=== PATIENT | female | born 1935 | race Caucasian/White ===

== ENCOUNTER 2016-10-05 22:25 | Inpatient (IN) | payer MEDICARE, OTHER ==
--- NOTE | ~2016-10-05 | CN ---
Consultation Report [facility] [address] [place]. [address] NAME: PK PICHARDO : 34 STATUS : ADM IN PAT#: [id number] AGE: 80 ADM/REG DATE : 10/06/16 MR#: [id number] REPORT SERV DATE: 10/06/16 DICTATED BY: FAB FARRIS DATE: 10/06/16 REPORT STATUS : Draft TRANSCRIBED BY: MODL DATE: 10/06/16 DATE OF CONSULTATION: 10/06/2016 HISTORY OF PRESENT ILLNESS: This patient was transferred over from [facility]. She was over there because of left lower extremity pain and discoloration. She had gangrene of her left first great toe. On 09/25/2016, she was operated by Dr. Evangelista with revascularization procedure on her left lower extremity. She does have a history of atrial fibrillation and is on Xarelto. The stools were somewhat dark, but not melenic. Her hemoglobin was 11.6 on 09/25/2016 and was admitted with a hemoglobin of 5.6. PAST MEDICAL HISTORY: Atrial fibrillation, osteoarthritis, hypertension, osteoporosis, and aortic stenosis. PAST SURGICAL HISTORY: Cholecystectomy and right AKA amputation. PHYSICAL EXAMINATION: GENERAL: Alert. VITAL SIGNS: Blood pressure 110/60 and pulse 74. NEUROLOGIC: Alert. Oriented x2. Somewhat pale. ABDOMEN: Soft, nontender. Stool was brown in color. LABORATORY WORK: As noted, her hemoglobin has gone from 5.6 to 7.7 with one unit. BUN is 13. IMPRESSION: Probable upper gastrointestinal blood loss over the last two weeks, probably related to Xarelto use. As far as I know, she was not on a proton pump inhibitor. PLAN: Will follow stabilization. Transfusion. Hold the Xarelto. Will probably need EGD here at some point. MG/MODL Fab Farris M.D. / [id number] CC: Nii Peguero M.D. Alan Shikoh, M.D.
--- NOTE | ~2016-10-05 | IDS ---
Interim Discharge Summary [facility] [address] [place]. [address] NAME: PK PICHARDO : 34 STATUS : ADM IN PAT#: [id number] AGE: 80 ADM/REG DATE : 10/06/16 MR#: [id number] REPORT SERV DATE: 10/22/16 DICTATED BY: JAGRUTI BARRIOS DATE: 10/21/16 REPORT STATUS : Draft TRANSCRIBED BY: MODL DATE: 10/21/16 ADMISSION DATE: 10/06/2016 DISCHARGE DATE: Interim summary covers period 10/15/2016 through 10/21/2016. INTERIM DIAGNOSES: 1. Peripheral arterial disease, previous right below-knee amputation, critical limb ischemia, left lower extremity status post complex revascularization, 09/25/2016. Failed revascularization with left lower extremity gangrene necessitating above knee amputation, 10/17/2016. 2. Atrial fibrillation with rapid ventricular response, currently on metoprolol, Cardizem, Lanoxin, and Xarelto. 3. Variable hypotension, in part medication induced. 4. Cardiomyopathy with left ventricular ejection fraction 45% and right ventricular dysfunction on echocardiography. 5. Bilateral pleural effusions. 6. Protein calorie malnutrition. 7. Chronic prednisone. 8. Chronic constipation. 9. Chronic pain. 10.Glaucoma. 11.Gastrointestinal bleeding with acute blood loss anemia. Negative EGD. No colonoscopy plan. Stable hemoglobin, post transfusion. 12.Valvular heart disease with echocardiogram demonstrating mild MR and TR, mild aortic and mitral stenosis. OPERATION AND PROCEDURES: Left above knee amputation on 10/17/2016, Dr. Evangelista. INTERIM SUMMARY: During this week, her left lower extremity ischemia and gangrene progressed. She was seen by Vascular Surgery on 10/13/2016. She had progressive ischemia and gangrene. She was seen by Vascular Surgery on 10/17/2016 and taken to the OR where the above-mentioned procedure was performed. Her atrial fibrillation rate has been difficult to control in part because of some hypotension. She was transitioned from Coreg to metoprolol. Lanoxin was added. Cardizem was held because of its interaction with Xarelto. The latter was re-added today by Dr. Myrick. She has continued to have some hypoxemia. A chest x-ray today is remarkable for bilateral pleural effusions, bibasilar atelectasis, and increased central venous congestion. Her diuretic therapy is being adjusted. She has not had further gastrointestinal bleeding that has been evident and her hemoglobin has been stable. No further GI evaluation is planned. Interim Discharge Summary [address] [address] NAME: PK PICHARDO : 34 STATUS : ADM IN PAT#: [id number] AGE: 80 ADM/REG DATE : 10/06/16 MR#: [id number] REPORT SERV DATE: 10/22/16 DICTATED BY: JAGRUTI BARRIOS DATE: 10/21/16 REPORT STATUS : Draft TRANSCRIBED BY: CHARLOTTE DATE: 10/21/16 She has been approved for [facility], pending medical stability. Hospitalist care to be assumed by [address] [place] [address] team on 10/22/2016. DD/CHARLOTTE Jagruti Barrios M.D. / [id number] CC: Nii Steele M.D.
--- NOTE | ~2016-10-05 | OP ---
Record Of Operation [facility] [address] [address] NAME: PK PICHARDO : 34 STATUS : ADM IN [facility]#: [id number] AGE: 80 ADM/REG DATE : 10/06/16 MR#: [id number] REPORT SERV DATE: 10/08/16 DICTATED BY: JAGRUTI SYED DATE: 10/07/16 REPORT STATUS : Draft TRANSCRIBED BY: MODKurtis DATE: 10/07/16 DATE OF PROCEDURE: 10/07/2016 PROCEDURE: Panendoscopy. PREOPERATIVE DIAGNOSES: GI bleed. Tarry stools. Hemoglobin 10 after 2 units of transfusion; initial hemoglobin was 6. POSTOPERATIVE DIAGNOSES: Normal panendoscopy. No blood noted throughout upper GI tract. DESCRIPTION OF PROCEDURE: Risks and benefits were explained to the patient prior to procedure. Provided medication per Anesthesia. The patient was placed in the left lateral decubitus position. Olympus video endoscope was advanced in to the esophagus which appeared normal. No blood noted. The scope was passed in to the stomach. Some bile noted, but no blood noted in the stomach, otherwise normal. Retroflexed view of the fundus and cardia appeared normal. The scope was advanced in to the duodenum. The first and second portions appeared normal. No blood noted . The scope was then pulled back into the stomach and then pulled back in to the esophagus and removed. The patient tolerated the procedure well. No complications noted. MARION/CHARLOTTE Jagruti Syed M.D. / [id number] CC: Nii Peguero M.D.
--- NOTE | ~2016-10-05 | DS ---
Discharge Summary [facility] [address] [place]. [address] NAME: PK PICHARDO : 34 STATUS : DIS IN PAT#: [id number] AGE: 80 ADM/REG DATE : 10/06/16 MR#: [id number] REPORT SERV DATE: 10/23/16 DICTATED BY: GOVIND BURRIS DATE: 10/22/16 REPORT STATUS : Draft TRANSCRIBED BY: MODL DATE: 10/22/16 ADMISSION DATE: 10/06/2016 DISCHARGE DATE: 10/22/2016 DISCHARGE DIAGNOSES: Include: 1. Severe peripheral arterial disease and gangrene of the left lower extremity, status post a left cunce-kvp-zoro amputation performed on 10/17/2016. 2. Atrial fibrillation with rapid ventricular response. 3. Gastrointestinal bleeding. 4. Anemia of acute blood loss. H and H stable, 11.2 and 36.7. 5. Hypotension that is stable. 6. Bilateral pleural effusions, improved. 7. Chronic systolic heart failure. 8. Severe protein Kcal malnutrition. 9. Chronic prednisone therapy. 10.Valvular heart disease with the patient in mild TR, mild MR, and mild aortic and mitral stenosis. DISCHARGE MEDICATIONS: Are as follows, vitamin D 2000 units daily, Lanoxin 0.125 mg daily, Cardizem 30 mg every eight hours, Neurontin 600 mg twice a day, Xalatan eye drops ophthalmic at bedtime in each eye, multivitamin tablet daily, Toprol-XL 100 mg daily, Protonix 40 mg daily, MiraLAX one packet daily, potassium sustained release tablet 20 mEq daily, Xarelto 20 mg daily, Senokot two tabs daily, prednisone 5 mg daily, DuoNebs inhaled every four hours while awake, Tylenol 650 mg every four hours p.r.n., Colace 100 mg twice a day p.r.n. Percocet 5/325 one tablet every four hours p.r.n. for pain, PreserVision cap twice a day, Ambien 5 mg at bedtime p.r.n. for insomnia. HISTORY OF PRESENT ILLNESS: This is an 80-year-old white female who originally presented with acute blood loss anemia, melanotic stools, lightheadedness, weakness, and fatigue. Please see initial H and P of Dr. Reginald Santos. The patient was admitted to the rn mds coordinator service and ICU. Please see the interim discharge summaries of Dr. Wilson and Dr. Jaiden Barrios, as this discharge summary will simply cover today's date of 10/22/2016. CONSULTANTS DURING THIS HOSPITAL ADMISSION: Include Gastroenterology, Dr. Fab Tabares, Dr. Jaiden Warner; Cardiology, Dr. Shane North; and Vascular Surgery, Dr. Derick Evangelista. CONTINUATION IN HOSPITAL COURSE: The patient was given some IV diuresis in the past 24 hours with good urine output of approximately 2.3 L. her oxygen requirement has decreased. She is feeling well, having no new complaint. Her lab work reveals a BUN of 12 and a creatinine of 0.41 and she was approved for [facility]. Zelaya catheter was discontinued. Continued to wean her oxygen as she tolerates with keeping her saturation greater than 92% and we will discharge the patient with the above medications. Questions were answered at bedside with the patient and her family. She is in agreement with this plan going forward. Discharge Summary [address] [address] NAME: PK PICHARDO : 34 STATUS : DIS IN PAT#: [id number] AGE: 80 ADM/REG DATE : 10/06/16 MR#: [id number] REPORT SERV DATE: 10/23/16 DICTATED BY: GOVIND BURRIS DATE: 10/22/16 REPORT STATUS : Draft TRANSCRIBED BY: CHARLOTTE DATE: 10/22/16 Appreciate the sediment remediation consultant's help on this case while admitted. WAYLON/MODL Derick Macdonald, SOMMER Govind Burris MD / [id number] CC: MD Pato Clifton M.D.
--- NOTE | ~2016-10-05 | IDS ---
Interim Discharge Summary [facility] [id number] [place]. [address] NAME: PK MARQUIS : 34 STATUS : ADM IN [facility]#: [id number] AGE: 80 ADM/REG DATE : 10/06/16 MR#: [id number] REPORT SERV DATE: 10/13/16 DICTATED BY: DEBORA PRESTON DATE: 10/13/16 REPORT STATUS : Draft TRANSCRIBED BY: CHARLOTTE DATE: 10/13/16 ADMISSION DATE: 10/06/2016 DISCHARGE DATE: DATE OF DISCHARGE: Pending. CONSULTATION: 1. Vascular surgery, Dr. Evangelista. 2. Gastroenterology, Dr. Jaiden Warner. 3. Cardiology, Dr. Shane North. CURRENT DIAGNOSES: 1. Acute blood loss anemia due to gastrointestinal bleed, status post panendoscopy without definitive source of bleed identified. Status post 2 units of blood transfusion. Hemoglobin stable at 9.1. 2. Left lower extremity cellulitis with left first toe gangrene, currently on vancomycin and Zosyn, vascular surgery on board. 3. Severe peripheral vascular disease. 4. Severe peripheral arterial disease. 5. Chronic heart failure with reduced ejection fraction of 45%. 6. Small bilateral pleural effusion. 7. Hypertension. 8. Hypoalbuminemia. 9. Severe protein energy malnutrition due to reduced p.o. intake. 10.History of right lower extremity BKA. INVASIVE PROCEDURE PERFORMED DURING THIS ADMISSION: Corley endoscopy. BRIEF HISTORY OF PRESENT ILLNESS: Ms. Marquis is an 80-year-old female with medical history significant for atrial fibrillation on chronic anticoagulation with Xarelto; peripheral vascular disease, status post right BKA due to critical right lower limb ischemia; left lower extremity first toe gangrene who presented to the emergency department with complaints of melanotic stool, lightheadedness, weakness, and fatigue. PHYSICAL EXAMINATION: VITAL SIGNS: Blood pressure 116/72, heart rate 135 beats per minute. EXTREMITIES: Physical exam was significant for left lower extremity erythema, swelling, and left lower extremity first toe gangrene, right BKA stump well healed. LABORATORY DATA: WBC 26.2, hemoglobin 5. An assessment of acute blood loss anemia secondary to GI bleed and sepsis secondary to left lower extremity cellulitis and left first toe gangrene was made in the ER. The patient was admitted to the ICU. HOSPITAL COURSE: Interim Discharge Summary [facility] [address] [place]. [address] NAME: PK MARQUIS : 34 STATUS : ADM IN [facility]#: [id number] AGE: 80 ADM/REG DATE : 10/06/16 MR#: [id number] REPORT SERV DATE: 10/13/16 DICTATED BY: DEBORA PRESTON DATE: 10/13/16 REPORT STATUS : Draft TRANSCRIBED BY: CHARLOTTE DATE: 10/13/16 1. Acute blood loss anemia. The patient received IV fluid resuscitation and was transfused 2 units of packed red blood cell. Xarelto was discontinued and placed on PPI drip. Gastroenterology was consulted. We performed a panendoscopy. No definitive source of GI bleed identified. Post transfusion, the patient's hemoglobin has remained stable between 8 and 9.5. No further episodes of melanotic stools. 2. Left lower extremity cellulitis with left toe gangrene. The patient continued to receive broad-spectrum IV antibiotics. The patient's white blood cell currently trended down to 12.5. Vascular surgery, the patient may likely require amputation of the first toe, currently on a trial of antibiotics pending improvement. Dr. Evangelista is on the case and will evaluate the patient during this admission for further recommendations. 3. Chronic atrial fibrillation with RVR. The patient's Xarelto was held due to life- threatening GI bleed. Also has received Cardizem drip during the course of this admission and subsequently weaned off. The patient is not receiving Coreg 25 mg p.o. b.i.d. and Cardizem 30 mg p.o. q.8 hours. Machine Puller is currently on board. 4. Heart failure with reduced EF. The patient's BNP was elevated at 669.8. Echocardiogram showing an EF of 45%. The patient received IV diuretics. Currently, she appears euvolemic on exam and has been transitioned to p.o. diuretics. 5. Small bilateral pleural effusion which has improved with IV diuretics. No need for thoracentesis at this time based on chest x-ray imaging. CURRENT CONDITION: Stable. DISCHARGE DISPOSITION: Pending. FURTHER RECOMMENDATION: By Vascular. BEVERLEYO/CHARLOTTE Debora Preston MD / [id number] CC: MD Pato Mustafa M.D.
--- NOTE | ~2016-10-05 | CN ---
Consultation Report [facility] [address] [place]. [address] NAME: PK MARQUIS : 34 STATUS : ADM IN [facility]#: [id number] AGE: 80 ADM/REG DATE : 10/06/16 MR#: [id number] REPORT SERV DATE: 10/12/16 DICTATED BY: TARIQ NORTH DATE: 10/11/16 REPORT STATUS : Draft TRANSCRIBED BY: MODL DATE: 10/11/16 CARDIOLOGY CONSULTATION NOTE DATE OF CONSULTATION: 10/11/2016 REASON FOR CONSULTATION: Atrial fibrillation with rapid ventricular response in the setting of acute GI bleed. HISTORY OF PRESENT ILLNESS: Ms. Marquis is an 80-year-old woman with multiple medical problems, which include peripheral vascular disease, status post right yfxxj-snd-gnlf amputation. The patient also has a gangrenous left toe. She has a long history of atrial fibrillation and is treated with a chronic oral anticoagulant-Xarelto. The patient is followed on an outpatient basis by Dr. Myrick. She has a history of mild to moderate aortic valve stenosis with an echocardiogram performed in February 2016 showing an aortic valve area of 1.4 sq cm. The patient has normal left ventricular systolic function. She apparently has no known history of coronary heart disease. The patient was admitted on 10/06/2016 with severe lightheadedness and fatigue. The patient was apparently also having melenic stools. The patient is very fatigued at this time, and is not able to provide much in the way of useful history. She presently denies any unusual dyspnea or chest pain. The patient was found to have a hemoglobin of 5 on admission to the hospital. She was hypotensive at that time, but has since recovered normal vital signs after transfusion of blood products. PAST MEDICAL HISTORY: Significant for peripheral vascular disease, atrial fibrillation, hypertension, and acute blood loss anemia. PAST SURGICAL HISTORY: Significant for a right byazo-cmx-dmsp amputation and otherwise noncontributory. FAMILY HISTORY: Negative for early coronary heart disease or sudden cardiac . SOCIAL HISTORY: The patient has a remote history of tobacco use, but currently has no tobacco, alcohol, or drug use. ALLERGIES: THE PATIENT HAS NO KNOWN MEDICATION ALLERGIES. HOME MEDICATIONS: 1. Carvedilol 6.25 mg p.o. twice daily. 2. Ceftin 250 mg p.o. twice daily. 3. Vitamin D 2000 units daily. 4. Colace 100 mg p.o. twice daily. 5. Gabapentin 600 mg p.o. twice daily. 6. Lactulose 20 g p.o. at bedtime as needed for constipation. Consultation Report [facility] [address] [place]. [address] NAME: PK MARQUIS : 34 STATUS : ADM IN PAT#: [id number] AGE: 80 ADM/REG DATE : 10/06/16 MR#: [id number] REPORT SERV DATE: 10/12/16 DICTATED BY: TARIQ NORTH DATE: 10/11/16 REPORT STATUS : Draft TRANSCRIBED BY: CHARLOTTE DATE: 10/11/16 7. Xalatan ophthalmologic drops to each eye daily. 8. Multivitamin one tablet daily. 9. Potassium chloride 20 mEq daily. 10.Prednisone 10 mg daily. 11.Xarelto 20 mg p.o. daily. 12.Ambien 5 mg p.o. at bedtime. REVIEW OF SYSTEMS: A meaningful review of systems could not be obtained at this time, the patient is somewhat fatigued and disoriented. PHYSICAL EXAMINATION: VITAL SIGNS: Temperature is 97.7 degrees Fahrenheit, blood pressure is 106/59 mmHg, heart rate is 98 beats per minute and irregular, respirations 16, and oxygen saturation is 95% on 3 L nasal cannula. CONSTITUTIONAL: The patient is a frail elderly white woman, who appears very fatigued, but is in no acute distress at this time. HEAD/MNT: NCAT with moist mucous membranes and grossly normal hard and soft palate. NECK: Supple with no obvious thyromegaly or lymphadenopathy CARDIOVASCULAR: There is an irregularly irregular rhythm with a variable S1 and a diminished aortic component of the second heart sound. There is a 3/6 early to mid peaking systolic ejection murmur best heard at the right upper sternal border. The carotid upstroke is grossly normal. The jugular venous pressure does appear to be moderately elevated at this time at 10 cm with normal respiratory variation. PULMONARY: There is globally decreased air movement with no significant wheezing rales, rhonchi, or dullness to percussion noted. ABDOMINAL: Soft, non-tender, non-distended with no hepatosplenomegaly noted. LOWER EXTREMITIES: The patient is status post right cnbpk-boj-qjtm amputation with a well- healed scar. She has a dressing on her left foot. There is trace to 1+ edema at the left ankle. MUSCULOSKELETAL: Grossly normal strength and range of motion in all extremities INTEGUMENTARY: Skin appears intact with no bruises, wounds or active lesions noted NEURO/PSYC: Alert and oriented x3, with no dysarthria, facial droop or lateralizing weakness noted. DIAGNOSTIC DATA: Chest x-ray: The patient's chest x-ray shows scoliosis, tortuosity of the aorta, and is suggestive of mild pulmonary vascular congestion. 12-lead EKG: The patient's 12-lead EKG shows atrial fibrillation with a ventricular rate of 107 beats per minute. There are nonspecific ST/T-wave abnormalities and no other significant abnormality. LABORATORY: CBC shows a white blood cell count of 14, hemoglobin 9, hematocrit 29, and platelets 357. Metabolic profile shows a sodium of 140, potassium 3.4, chloride is 104, BUN Consultation Report [address] [address] NAME: PK MARQUIS : 34 STATUS : ADM IN PAT#: [id number] AGE: 80 ADM/REG DATE : 10/06/16 MR#: [id number] REPORT SERV DATE: 10/12/16 DICTATED BY: TARIQ NORTH DATE: 10/11/16 REPORT STATUS : Draft TRANSCRIBED BY: CHARLOTTE DATE: 10/11/16 is 4, creatinine is 0.38, glucose 105, and calcium 7.9. Albumin is decreased at 1.8. B- type natriuretic peptide is elevated at 669. ASSESSMENT AND PLAN: 1. Atrial fibrillation with rapid ventricular response: This is expected given the patient's acute blood loss anemia. The patient is presently on a diltiazem drip: However, I feel it would be reasonable to titrate this to off provided the patient's heart rate remains less than 120 beats per minute. The patient will continue her current old dose of diltiazem. She will continue carvedilol. 2. Evidence of volume overload including elevated BNP and elevated jugular venous pressure: The patient likely has some degree of diastolic dysfunction given her advanced age. The patient has been started on Bumex 1 mg q.8 hours. I would discontinue this once the patient's jugular venous pressure has returned to normal or there is an increase in her BUN to creatinine ratio. Consider addition of Aldactone if the patient's potassium level remains low normal. 3. Stroke prophylaxis: I would recommend that the patient's Xarelto be discontinued until the patient's hemoglobin has returned to normal or at least to a value greater than 10 and 30. I think, it would be reasonable to hold oral anticoagulation for at least 2 to 4 weeks, given the severe and life-threatening nature of the patient's GI bleeding. There is some stroke risk associated with this; however, I feel the stroke risk is considerably less than the risk of morbidity or mortality from ongoing GI bleeding. Thank you for allowing me to participate in the care of Ms. Marquis. The Cardiology Service will continue to follow the patient closely during this admission. SHERYL/CHARLOTTE Tariq North MD / [id number] CC: Reginald Santos M.D.
--- NOTE | ~2016-10-05 | OP ---
Record Of Operation [facility] [address] [place]. [address] NAME: PK PICHARDO : 34 STATUS : ADM IN PAT#: [id number] AGE: 80 ADM/REG DATE : 10/06/16 MR#: [id number] REPORT SERV DATE: 10/19/16 DICTATED BY: DERICK EVANGELISTA DATE: 10/18/16 REPORT STATUS : Draft TRANSCRIBED BY: MODL DATE: 10/18/16 DATE OF PROCEDURE: 10/17/2016 PREPROCEDURE DIAGNOSIS: Progressive gangrene left foot. PROCEDURE PERFORMED: Left above-knee amputation. SURGEON: Derick Evangelista M.D. ANESTHESIA: General. COMPLICATIONS: None. INDICATION FOR PROCEDURE: Secondary to this pleasant 80-year-old female presenting with multiple attempted limb salvage procedures with failure to heal of the left foot progressive gangrene. Recommendations were made for amputation for life-saving procedure. DETAILS OF PROCEDURE: The patient was brought to the endovascular operating room, placed in supine position, prepped and draped in routine sterile fashion with attention to the left leg, amputation was then performed at the above knee level. A curvilinear incision was made over the skin and dissection proceeded down through the skin subcutaneous tissues to the bone. Bone was then transected in distal femur and transected with a Gigli saw and the posterior flap was then created. The neurovascular bundles were ligated and divided individually. The bundle was slightly 1 inch too long and this was then resected again with a Gigli saw. The bone was rasped smooth, the entire muscle beds were then cauterized for bleeding control and then a myopexy was then performed over top of the bone with six-point suture. The fascia was then closed with interrupted Vicryl suture. The skin was then closed with marlo. Standard dressings were applied. The patient tolerated the procedure well. CL/MODKurtis Derick Evangelista M.D. / [id number] CC: Nii Steele M.D.
--- NOTE | ~2016-10-05 | HP ---
History And Physical [id number] [place]. [address] NAME: PK MARQUIS : 33 STATUS : ADM IN [facility]#: [id number] AGE: 80 ADM/REG DATE : 10/06/16 MR#: [id number] REPORT SERV DATE: 10/06/16 DICTATED BY: TAMI SANTOS DATE: 10/06/16 REPORT STATUS : Draft TRANSCRIBED BY: MODL DATE: 10/06/16 DATE OF ADMISSION: 10/06/2016 REASON FOR ADMISSION: Acute blood-loss anemia, symptomatic anemia, GI bleed. HISTORY OF PRESENT ILLNESS: Ms. 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 She was found to have a hemoglobin of 5 and to be hypotensive. She has been started on blood transfusions and fluid resuscitation with improvement of her symptoms. This morning, she is still feeling weak, but overall better. PAST MEDICAL HISTORY: Significant for peripheral vascular disease, chronic anticoagulation, atrial fibrillation, and hypertension. No chronic kidney disease. SOCIAL HISTORY: Significant for remote use of tobacco. No alcohol abuse or illicit drug use. FAMILY HISTORY: Noncontributory to this acute presentation in this 80-year-old woman. REVIEW OF SYSTEMS: Review of 10 systems was performed and is positive for what was noted above. PHYSICAL EXAMINATION: GENERAL: She is a thin, frail-appearing, elderly woman. HEENT: Normocephalic and atraumatic. NECK: Supple. No lymphadenopathy and no JVD. CHEST: Symmetric with good expansion bilaterally. LUNGS: Clear to auscultation and percussion bilaterally. CARDIOVASCULAR: She has S1 and S2, which are regular in rate and rhythm. ABDOMEN: Benign. EXTREMITIES: She has no edema, no clubbing, and no cyanosis. She has an amputation of the right and she has very hyperemic, though warm, left foot with a gangrenous toe. The gangrene appears dry. ASSESSMENT AND PLAN: Acute blood loss anemia. She has a hemoglobin of 5, which is symptomatic, hypotensive, with melenic stools and heme-positive stools. We have consulted Gastroenterology, and she will have close monitoring of her hemoglobin with transfusion parameters, and has been started on proton pump inhibitor drip. Her peripheral vascular disease is also a problem, may be worse now because of her hypotension, decreased perfusion to her left foot, so we have consulted Dr. Evangelista as well. History And Physical [address] [place]. [address] NAME: PK MARQUIS : 33 STATUS : ADM IN PAT#: [id number] AGE: 80 ADM/REG DATE : 10/06/16 MR#: [id number] REPORT SERV DATE: 10/06/16 DICTATED BY: TAMI SANTOS DATE: 10/06/16 REPORT STATUS : Draft TRANSCRIBED BY: CHARLOTTE DATE: 10/06/16 Respiratory status is stable. Her cardiac status is also stable for the time being, though we have discontinued her antihypertensives and anticoagulants at this time. Care was discussed with the patient. MAGY/CHARLOTTE Tami Santos M.D. / [id number] CC: Nii Peguero M.D.
[~2016-10-05 22:25] MED LIST: ALLEGRA180 PO; AMB5 PO; ASA5GR PO; BISR PR; CALTRA600D PO; CARD30 PO; CENTRUM PO; CENTRUM TAB1 TAB PO; CORDARONE PO; COREG12 PO; COREG25 PO; COREG3 PO; COREG6 PO; DIGITEK0.125 MG PO; KLOR-CON M1010 MEQ PO; KLOR-CON M2020 MEQ PO; L20 PO; LAN125 PO; LORTAB 5 PO; MAGOX4 PO; MICRO-K10 MEQ PO; MULTIVIT/MIN PO; NATURE'S OP; NEUR600 PO; NORCO1 TA1 PO; NORCO1 TA2 PO; OS500+D PO; OTC VITAMIN D PO; P10 PO; P5 PO; PACERONE200 MG PO; PRESERVISION A1 EAC1 PO; RELA5 PO; TEARS PURE OPH; VANCO1P IV; VITAMIN D2000 UNIT PO; VITC500 PO; XALAT OPH; XARELTO20 MG PO; XERELTO; Z-PAK PO
[2016-10-05] MEDS ORDERED: COREG6 PO (23:31)
[2016-10-05] MEDS ORDERED: CEFT2 PO (23:32)
[2016-10-05] MEDS ORDERED: COLACEUDL PO (23:33)
[2016-10-05] MEDS ORDERED: NEURUDL250 PO (23:33)
[2016-10-05] MEDS ORDERED: VITAMIN D2000 UNIT PO (23:33)
[2016-10-05] MEDS ORDERED: GENERLAC PO (23:34)
[2016-10-05] MEDS ORDERED: XALAT OPH (23:35)
[2016-10-05] MEDS ORDERED: MULTIVIT/MIN PO (23:35)
[2016-10-05] MEDS ORDERED: PRESERVISION A1 EACH PO (23:36)
[2016-10-05] MEDS ORDERED: KCL20UDL PO (23:36)
[2016-10-05] MEDS ORDERED: P10 PO (23:37)
[2016-10-05] MEDS ORDERED: XARELTO20 MG PO (23:38)
[2016-10-05] MEDS ORDERED: AMB5 PO (23:39)
[2016-10-06 01:09] LABS: BASOPHILS 0.1 %; BASOPHILS ABSOLUTE 0.02 10/3/uL (0.0-0.16); EOSINOPHILS 0.2 %; EOSINOPHILS ABSOLUTE 0.04 10/3/uL (0.0-0.53); ER CBC TAT 0 Hrs 07 Mins; HEMATOCRIT 17.5 % (36.0-48.0); HEMOGLOBIN 5.6 g/dL (12.0-16.0); IMMATURE GRANULOCYTES 0.6 %; LYMPHOCYTES 7.6 %; LYMPHOCYTES ABSOLUTE 1.28 10/3/uL (0.67-4.30); MEAN CORPUSCULAR HEMOGLOB 29.2 pg (26.0-34.0); MEAN CORPUSCULAR VOLUME 91.1 fL (80-100); MEAN PLATELET VOLUME 8.3 fL (9.2-13.0); MONOCYTES 10.7 %; NEUTROPHILS 80.8 %; NEUTROPHILS ABSOLUTE 13.61 10/3/uL (2.02-8.40); PLATELET COUNT 376 10/3/uL (150-400); RBC DISTRIBUTION WIDTH 14.8 % (12.0-16.0); RED CELL COUNT 1.92 10/6/uL (4.0-5.6); WHITE BLOOD CELLS 16.9 10/3/uL (4.5-10.5)
[2016-10-06 01:10] LABS: MANUAL DIFF NO %
[2016-10-06 01:14] LABS: ASCORBIC ACID (UR NOT ORDER) NEG (NEG); BILIRUBIN, URINE NEGATIVE (NEG); ER URINALYSIS TAT 0 Hrs 15 Mins; KETONE, URINE NEGATIVE (NEG); LEUKOCYTE ESTERASE(NOT OR SMALL (NEG); NITRITE (URINE) NEG (NEG); WBC (NOT ORDERED) (RFLEX) 151 (0-5)
[2016-10-06 01:16] LABS: PARTIAL THROMBO TIME 43.9 SEC (22.5-37.2); PROTIME (NOT ORD) 22.9 SEC (12.0-14.5)
[2016-10-06 01:26] LABS: LACTATE 1.9 MMOL/L (0.3-2.4)
[2016-10-06 01:37] LABS: PROCALCITONIN 0.07 ng/mL (<0.5)
[2016-10-06 01:50] LABS: A/G RATIO 0.5 (0.7-1.9); ALBUMIN 1.5 G/DL (3.5-5.0); CALCIUM, SERUM 7.5 MG/DL (8.5-10.4); CHLORIDE, SERUM 99 MMOL/L (96-112); CO2 (CARBON DIOXIDE) 28 MMOL/L (24-34); CREATININE 0.57 MG/DL (0.55-1.02); GFR AFRICAN AMERICAN 101 ML/MIN (>=60); GFR NON AFRICAN AMERICAN 87 ML/MIN (>=60); GLOBULIN 3.2 G/DL (2.5-4.1); GLUCOSE, SERUM 156 MG/DL (60-99); POTASSIUM, SERUM 3.7 MMOL/L (3.5-5.3); SGOT(AST) 83 U/L (5-40); SGPT(ALT) 63 U/L (5-65); SODIUM, SERUM 134 MMOL/L (135-148); TOTAL BILIRUBIN 0.5 MG/DL (0-1.2); TOTAL PROTEIN 4.7 G/DL (6.0-8.5)
[2016-10-06 01:51] LABS: ALKALINE PHOSPHATASE 70 U/L (45-117); BUN (BLOOD UREA NITROGEN) 16 MG/DL (6-23)
[2016-10-06 09:00] LABS: BASOPHILS 0.1 %; BASOPHILS ABSOLUTE 0.02 10/3/uL (0.0-0.16); EOSINOPHILS 0.7 %; EOSINOPHILS ABSOLUTE 0.11 10/3/uL (0.0-0.53); HEMOGLOBIN 7.7 g/dL (12.0-16.0); IMMATURE GRANULOCYTES 0.8 %; IMMATURE GRANULOCYTES ABSOLUTE 0.13 10/3/uL (0.0-0.11); LYMPHOCYTES 5.9 %; LYMPHOCYTES ABSOLUTE 0.99 10/3/uL (0.67-4.30); MEAN CORPUS HGB CONC 32.8 g/dL (32.0-36.0); MEAN CORPUSCULAR HEMOGLOB 28.6 pg (26.0-34.0); MEAN PLATELET VOLUME 8.3 fL (9.2-13.0); MONOCYTES 11.3 %; NEUTROPHILS 81.2 %; NEUTROPHILS ABSOLUTE 13.69 10/3/uL (2.02-8.40); PLATELET COUNT 380 10/3/uL (150-400); RED CELL COUNT 2.69 10/6/uL (4.0-5.6); WHITE BLOOD CELLS 16.8 10/3/uL (4.5-10.5)
[2016-10-06 09:01] LABS: HEMATOCRIT 23.5 % (36.0-48.0); MANUAL DIFF NO %; MEAN CORPUSCULAR VOLUME 87.4 fL (80-100)
[2016-10-06 09:14] LABS: INTERNATIONAL NORMAL RATI 1.6 UNITS (-); PARTIAL THROMBO TIME 34.3 SEC (22.5-37.2)
[2016-10-06 09:19] LABS: BUN (BLOOD UREA NITROGEN) 13 MG/DL (6-23); CALCIUM, SERUM 7.8 MG/DL (8.5-10.4); CHLORIDE, SERUM 101 MMOL/L (96-112); CO2 (CARBON DIOXIDE) 27 MMOL/L (24-34); CREATININE 0.44 MG/DL (0.55-1.02); GFR AFRICAN AMERICAN 110 ML/MIN (>=60); GFR NON AFRICAN AMERICAN 95 ML/MIN (>=60); POTASSIUM, SERUM 3.6 MMOL/L (3.5-5.3); SODIUM, SERUM 134 MMOL/L (135-148)
[2016-10-06 09:20] LABS: GLUCOSE, SERUM 103 MG/DL (60-99)
[2016-10-06 09:21] LABS: PROTIME (NOT ORD) 18.7 SEC (12.0-14.5)
[2016-10-06 14:26] LABS: HEMATOCRIT 32.9 % (36.0-48.0); HEMOGLOBIN 10.9 g/dL (12.0-16.0)
[2016-10-06 14:45] LABS: POTASSIUM, SERUM 3.6 MMOL/L (3.5-5.3)
[2016-10-06 16:44] LABS: HEMATOCRIT 32.8 % (36.0-48.0); HEMOGLOBIN 10.8 g/dL (12.0-16.0)
[2016-10-06 22:07] LABS: HEMATOCRIT 27.3 % (36.0-48.0); HEMOGLOBIN 9.3 g/dL (12.0-16.0)
[2016-10-07 03:47] LABS: HEMOGLOBIN 10.7 g/dL (12.0-16.0); MEAN CORPUS HGB CONC 33.8 g/dL (32.0-36.0); MEAN CORPUSCULAR HEMOGLOB 28.7 pg (26.0-34.0); MEAN PLATELET VOLUME 8.3 fL (9.2-13.0); PLATELET COUNT 452 10/3/uL (150-400); RBC DISTRIBUTION WIDTH 18.3 % (12.0-16.0)
[2016-10-07 03:48] LABS: HEMATOCRIT 31.7 % (36.0-48.0); MANUAL DIFF YES %; RED CELL COUNT 3.73 10/6/uL (4.0-5.6); WHITE BLOOD CELLS 26.2 10/3/uL (4.5-10.5)
[2016-10-07 03:52] LABS: INTERNATIONAL NORMAL RATI 1.2 UNITS (-); PARTIAL THROMBO TIME 23.2 SEC (22.5-37.2); PROTIME (NOT ORD) 15.5 SEC (12.0-14.5)
[2016-10-07 03:57] LABS: BUN (BLOOD UREA NITROGEN) 12 MG/DL (6-23); CALCIUM, SERUM 8.1 MG/DL (8.5-10.4); CHLORIDE, SERUM 96 MMOL/L (96-112); CO2 (CARBON DIOXIDE) 23 MMOL/L (24-34); CREATININE 0.47 MG/DL (0.55-1.02); GFR AFRICAN AMERICAN 107 ML/MIN (>=60); GFR NON AFRICAN AMERICAN 93 ML/MIN (>=60); GLUCOSE, SERUM 122 MG/DL (60-99); POTASSIUM, SERUM 3.7 MMOL/L (3.5-5.3); SODIUM, SERUM 128 MMOL/L (135-148)
[2016-10-07 04:15] LABS: BAND NEUTROPHILS 1 %; IMMATURE GRANS ABSOLUTE (CALC) 0.26 10/3/uL (0.0-0.11); LYMPHOCYTES 2 %; LYMPHOCYTES ABSOLUTE (CALC) 0.52 10/3/uL (0.67-4.30); MONOCYTES 2 %; MONOCYTES ABSOLUTE (CALC) 0.52 10/3/uL (0.21-1.20); MYELOCYTES 1 %; NEUTROPHILS ABSOLUTE (CALC) 24.89 10/3/uL (2.02-8.40); RBC MORPHOLOGY NORM (NORMAL); SEGMENTED NEUTROPHIL (0) 94 %; TOTAL NUCLEATED CELLS 100
[2016-10-07 08:59] LABS: PROCALCITONIN 0.07 ng/mL (<0.5)
[2016-10-07 10:15] LABS: HEMATOCRIT 27.6 % (36.0-48.0); HEMOGLOBIN 9.3 g/dL (12.0-16.0)
[2016-10-07 10:21] LABS: POTASSIUM, SERUM 3.8 MMOL/L (3.5-5.3)
[2016-10-07 16:13] LABS: HEMATOCRIT 29.6 % (36.0-48.0); HEMOGLOBIN 9.9 g/dL (12.0-16.0)
[2016-10-07 22:27] LABS: HEMATOCRIT 28.2 % (36.0-48.0); HEMOGLOBIN 9.3 g/dL (12.0-16.0)
[2016-10-08 03:53] LABS: BASOPHILS 0.1 %; BASOPHILS ABSOLUTE 0.02 10/3/uL (0.0-0.16); EOSINOPHILS 0.8 %; EOSINOPHILS ABSOLUTE 0.13 10/3/uL (0.0-0.53); HEMATOCRIT 26.1 % (36.0-48.0); HEMOGLOBIN 8.6 g/dL (12.0-16.0); IMMATURE GRANULOCYTES 0.9 %; IMMATURE GRANULOCYTES ABSOLUTE 0.14 10/3/uL (0.0-0.11); LYMPHOCYTES ABSOLUTE 1.63 10/3/uL (0.67-4.30); MEAN CORPUSCULAR HEMOGLOB 28.9 pg (26.0-34.0); MEAN PLATELET VOLUME 8.2 fL (9.2-13.0); MONOCYTES 10.8 %; MONOCYTES ABSOLUTE 1.75 10/3/uL (0.21-1.20); NEUTROPHILS 77.4 %; NEUTROPHILS ABSOLUTE 12.55 10/3/uL (2.02-8.40); PLATELET COUNT 423 10/3/uL (150-400); RBC DISTRIBUTION WIDTH 17.8 % (12.0-16.0); WHITE BLOOD CELLS 16.2 10/3/uL (4.5-10.5)
[2016-10-08 03:56] LABS: MANUAL DIFF NO %; MEAN CORPUSCULAR VOLUME 87.6 fL (80-100); RED CELL COUNT 2.98 10/6/uL (4.0-5.6)
[2016-10-08 04:19] LABS: A/G RATIO 0.5 (0.7-1.9); ALBUMIN 1.7 G/DL (3.5-5.0); ALKALINE PHOSPHATASE 77 U/L (45-117); CALCIUM, SERUM 7.2 MG/DL (8.5-10.4); CHLORIDE, SERUM 102 MMOL/L (96-112); CO2 (CARBON DIOXIDE) 25 MMOL/L (24-34); CREATININE 0.43 MG/DL (0.55-1.02); GFR AFRICAN AMERICAN 111 ML/MIN (>=60); GFR NON AFRICAN AMERICAN 95 ML/MIN (>=60); GLOBULIN 3.4 G/DL (2.5-4.1); PHOSPHORUS, SERUM 1.9 MG/DL (2.5-4.5); POTASSIUM, SERUM 3.8 MMOL/L (3.5-5.3); SGOT(AST) 68 U/L (5-40); SGPT(ALT) 85 U/L (5-65); SODIUM, SERUM 134 MMOL/L (135-148); TOTAL PROTEIN 5.1 G/DL (6.0-8.5)
[2016-10-08 04:24] LABS: BUN (BLOOD UREA NITROGEN) 7 MG/DL (6-23); GLUCOSE, SERUM 86 MG/DL (60-99); TOTAL BILIRUBIN 1.4 MG/DL (0-1.2)
[2016-10-08 08:31] LABS: PHOSPHORUS, SERUM 2.4 MG/DL (2.5-4.5); POTASSIUM, SERUM 4.3 MMOL/L (3.5-5.3)
[2016-10-08 10:49] LABS: HEMATOCRIT 29.5 % (36.0-48.0); HEMOGLOBIN 9.5 g/dL (12.0-16.0)
[2016-10-08 17:05] LABS: HEMATOCRIT 27.1 % (36.0-48.0); HEMOGLOBIN 8.7 g/dL (12.0-16.0)
[2016-10-08 22:12] LABS: HEMATOCRIT 26.5 % (36.0-48.0); HEMOGLOBIN 8.6 g/dL (12.0-16.0)
[2016-10-09 04:16] LABS: HEMOGLOBIN 8.9 g/dL (12.0-16.0); MEAN CORPUS HGB CONC 31.8 g/dL (32.0-36.0); MEAN CORPUSCULAR HEMOGLOB 28.8 pg (26.0-34.0); MEAN PLATELET VOLUME 8.3 fL (9.2-13.0); PLATELET COUNT 407 10/3/uL (150-400); RED CELL COUNT 3.09 10/6/uL (4.0-5.6); WHITE BLOOD CELLS 15.3 10/3/uL (4.5-10.5)
[2016-10-09 04:20] LABS: MANUAL DIFF YES %; MEAN CORPUSCULAR VOLUME 90.6 fL (80-100)
[2016-10-09 04:27] LABS: BUN (BLOOD UREA NITROGEN) 4 MG/DL (6-23); CALCIUM, SERUM 7.3 MG/DL (8.5-10.4); CHLORIDE, SERUM 104 MMOL/L (96-112); CO2 (CARBON DIOXIDE) 28 MMOL/L (24-34); CREATININE 0.41 MG/DL (0.55-1.02); GFR AFRICAN AMERICAN 112 ML/MIN (>=60); GFR NON AFRICAN AMERICAN 97 ML/MIN (>=60); GLUCOSE, SERUM 84 MG/DL (60-99); PHOSPHORUS, SERUM 2.4 MG/DL (2.5-4.5); POTASSIUM, SERUM 3.6 MMOL/L (3.5-5.3); SODIUM, SERUM 140 MMOL/L (135-148)
[2016-10-09 04:38] LABS: BAND NEUTROPHILS 1 %; EOSINOPHILS 1 %; EOSINOPHILS ABSOLUTE (CALC) 0.15 10/3/uL (0.0-0.53); IMMATURE GRANS ABSOLUTE (CALC) 0.15 10/3/uL (0.0-0.11); LYMPHOCYTES 12 %; LYMPHOCYTES ABSOLUTE (CALC) 1.84 10/3/uL (0.67-4.30); METAMYELOCYTES 1 %; MONOCYTES 6 %; MONOCYTES ABSOLUTE (CALC) 0.92 10/3/uL (0.21-1.20); NEUTROPHILS ABSOLUTE (CALC) 12.24 10/3/uL (2.02-8.40); SEGMENTED NEUTROPHIL (0) 79 %; TOTAL NUCLEATED CELLS 100
[2016-10-09 04:39] LABS: ANISOCYTOSIS 1+ (5-10/OIF) (0-5/OIF); MACROCYTES 1+ (5-10/OIF) (0-5/OIF); PLATELET ESTIMATE SLT INC (ADEQUATE); POLYCHROMASIA 1+ (2-5/OIF) (0-1/OIF)
[2016-10-10 05:20] LABS: BASOPHILS 0.2 %; BASOPHILS ABSOLUTE 0.03 10/3/uL (0.0-0.16); EOSINOPHILS 1.2 %; EOSINOPHILS ABSOLUTE 0.16 10/3/uL (0.0-0.53); HEMATOCRIT 28.5 % (36.0-48.0); HEMOGLOBIN 8.9 g/dL (12.0-16.0); IMMATURE GRANULOCYTES 0.5 %; IMMATURE GRANULOCYTES ABSOLUTE 0.07 10/3/uL (0.0-0.11); LYMPHOCYTES 10.2 %; LYMPHOCYTES ABSOLUTE 1.39 10/3/uL (0.67-4.30); MEAN CORPUS HGB CONC 31.2 g/dL (32.0-36.0); MEAN CORPUSCULAR HEMOGLOB 28.9 pg (26.0-34.0); MEAN CORPUSCULAR VOLUME 92.5 fL (80-100); MEAN PLATELET VOLUME 8.6 fL (9.2-13.0); MONOCYTES 11.3 %; MONOCYTES ABSOLUTE 1.53 10/3/uL (0.21-1.20); NEUTROPHILS 76.6 %; NEUTROPHILS ABSOLUTE 10.41 10/3/uL (2.02-8.40); PLATELET COUNT 367 10/3/uL (150-400); RBC DISTRIBUTION WIDTH 18.1 % (12.0-16.0); RED CELL COUNT 3.08 10/6/uL (4.0-5.6); WHITE BLOOD CELLS 13.6 10/3/uL (4.5-10.5)
[2016-10-10 05:22] LABS: MANUAL DIFF NO %
[2016-10-10 05:38] LABS: BUN (BLOOD UREA NITROGEN) 4 MG/DL (6-23); CALCIUM, SERUM 7.6 MG/DL (8.5-10.4); CHLORIDE, SERUM 105 MMOL/L (96-112); CO2 (CARBON DIOXIDE) 28 MMOL/L (24-34); CREATININE 0.36 MG/DL (0.55-1.02); GFR AFRICAN AMERICAN 117 ML/MIN (>=60); GFR NON AFRICAN AMERICAN 101 ML/MIN (>=60); GLUCOSE, SERUM 86 MG/DL (60-99); PHOSPHORUS, SERUM 1.8 MG/DL (2.5-4.5); POTASSIUM, SERUM 3.8 MMOL/L (3.5-5.3); SODIUM, SERUM 140 MMOL/L (135-148); VANCOMYCIN TROUGH 9.5 MCG/ML (10.0-20.0)
[2016-10-11 04:49] LABS: BASOPHILS 0.1 %; BASOPHILS ABSOLUTE 0.02 10/3/uL (0.0-0.16); EOSINOPHILS 0.9 %; EOSINOPHILS ABSOLUTE 0.13 10/3/uL (0.0-0.53); HEMATOCRIT 28.8 % (36.0-48.0); IMMATURE GRANULOCYTES 0.7 %; LYMPHOCYTES 10.3 %; LYMPHOCYTES ABSOLUTE 1.44 10/3/uL (0.67-4.30); MEAN CORPUS HGB CONC 31.3 g/dL (32.0-36.0); MEAN CORPUSCULAR HEMOGLOB 29.1 pg (26.0-34.0); MEAN CORPUSCULAR VOLUME 93.2 fL (80-100); MEAN PLATELET VOLUME 8.5 fL (9.2-13.0); NEUTROPHILS ABSOLUTE 10.95 10/3/uL (2.02-8.40); PLATELET COUNT 357 10/3/uL (150-400); RBC DISTRIBUTION WIDTH 17.5 % (12.0-16.0); RED CELL COUNT 3.09 10/6/uL (4.0-5.6)
[2016-10-11 04:52] LABS: MANUAL DIFF NO %
[2016-10-11 05:08] LABS: A/G RATIO 0.5 (0.7-1.9); ALBUMIN 1.8 G/DL (3.5-5.0); ALKALINE PHOSPHATASE 76 U/L (45-117); BUN (BLOOD UREA NITROGEN) 4 MG/DL (6-23); CALCIUM, SERUM 7.9 MG/DL (8.5-10.4); CHLORIDE, SERUM 104 MMOL/L (96-112); CREATININE 0.38 MG/DL (0.55-1.02); GFR AFRICAN AMERICAN 115 ML/MIN (>=60); GFR NON AFRICAN AMERICAN 99 ML/MIN (>=60); GLOBULIN 3.4 G/DL (2.5-4.1); POTASSIUM, SERUM 3.4 MMOL/L (3.5-5.3); SGOT(AST) 22 U/L (5-40); SGPT(ALT) 51 U/L (5-65); SODIUM, SERUM 140 MMOL/L (135-148); TOTAL PROTEIN 5.2 G/DL (6.0-8.5)
[2016-10-11 05:09] LABS: CO2 (CARBON DIOXIDE) 33 MMOL/L (24-34); GLUCOSE, SERUM 105 MG/DL (60-99); TOTAL BILIRUBIN 0.7 MG/DL (0-1.2)
[2016-10-12 06:08] LABS: BASOPHILS 0.2 %; BASOPHILS ABSOLUTE 0.02 10/3/uL (0.0-0.16); EOSINOPHILS 1.1 %; EOSINOPHILS ABSOLUTE 0.13 10/3/uL (0.0-0.53); HEMATOCRIT 27.5 % (36.0-48.0); HEMOGLOBIN 8.4 g/dL (12.0-16.0); IMMATURE GRANULOCYTES 0.7 %; IMMATURE GRANULOCYTES ABSOLUTE 0.09 10/3/uL (0.0-0.11); LYMPHOCYTES 11.5 %; LYMPHOCYTES ABSOLUTE 1.39 10/3/uL (0.67-4.30); MEAN CORPUS HGB CONC 30.5 g/dL (32.0-36.0); MEAN CORPUSCULAR HEMOGLOB 28.3 pg (26.0-34.0); MEAN CORPUSCULAR VOLUME 92.6 fL (80-100); MEAN PLATELET VOLUME 8.7 fL (9.2-13.0); MONOCYTES 11.9 %; MONOCYTES ABSOLUTE 1.43 10/3/uL (0.21-1.20); NEUTROPHILS 74.6 %; NEUTROPHILS ABSOLUTE 8.98 10/3/uL (2.02-8.40); PLATELET COUNT 314 10/3/uL (150-400); RBC DISTRIBUTION WIDTH 17.2 % (12.0-16.0); RED CELL COUNT 2.97 10/6/uL (4.0-5.6)
[2016-10-12 06:09] LABS: ALBUMIN 1.7 G/DL (3.5-5.0); BUN (BLOOD UREA NITROGEN) 5 MG/DL (6-23); CALCIUM, SERUM 7.7 MG/DL (8.5-10.4); CHLORIDE, SERUM 102 MMOL/L (96-112); CO2 (CARBON DIOXIDE) 33 MMOL/L (24-34); GFR AFRICAN AMERICAN 113 ML/MIN (>=60); GFR NON AFRICAN AMERICAN 98 ML/MIN (>=60); GLUCOSE, SERUM 97 MG/DL (60-99); MANUAL DIFF NO %; POTASSIUM, SERUM 3.3 MMOL/L (3.5-5.3); SODIUM, SERUM 141 MMOL/L (135-148)
[2016-10-13 06:19] LABS: BASOPHILS 0.2 %; BASOPHILS ABSOLUTE 0.02 10/3/uL (0.0-0.16); EOSINOPHILS 0.7 %; EOSINOPHILS ABSOLUTE 0.09 10/3/uL (0.0-0.53); HEMATOCRIT 29.1 % (36.0-48.0); HEMOGLOBIN 9.1 g/dL (12.0-16.0); IMMATURE GRANULOCYTES 0.5 %; IMMATURE GRANULOCYTES ABSOLUTE 0.06 10/3/uL (0.0-0.11); LYMPHOCYTES 11.5 %; LYMPHOCYTES ABSOLUTE 1.47 10/3/uL (0.67-4.30); MANUAL DIFF NO %; MEAN CORPUS HGB CONC 31.3 g/dL (32.0-36.0); MEAN CORPUSCULAR HEMOGLOB 28.8 pg (26.0-34.0); MEAN CORPUSCULAR VOLUME 92.1 fL (80-100); MEAN PLATELET VOLUME 8.8 fL (9.2-13.0); MONOCYTES 10.9 %; MONOCYTES ABSOLUTE 1.39 10/3/uL (0.21-1.20); NEUTROPHILS 76.2 %; NEUTROPHILS ABSOLUTE 9.74 10/3/uL (2.02-8.40); PLATELET COUNT 311 10/3/uL (150-400); RBC DISTRIBUTION WIDTH 17.2 % (12.0-16.0); RED CELL COUNT 3.16 10/6/uL (4.0-5.6); WHITE BLOOD CELLS 12.8 10/3/uL (4.5-10.5)
[2016-10-13 06:30] LABS: BUN (BLOOD UREA NITROGEN) 8 MG/DL (6-23); CALCIUM, SERUM 7.7 MG/DL (8.5-10.4); CHLORIDE, SERUM 100 MMOL/L (96-112); CO2 (CARBON DIOXIDE) 36 MMOL/L (24-34); CREATININE 0.49 MG/DL (0.55-1.02); GFR AFRICAN AMERICAN 106 ML/MIN (>=60); GFR NON AFRICAN AMERICAN 91 ML/MIN (>=60); GLUCOSE, SERUM 96 MG/DL (60-99); PHOSPHORUS, SERUM 3.1 MG/DL (2.5-4.5); POTASSIUM, SERUM 3.2 MMOL/L (3.5-5.3); SODIUM, SERUM 141 MMOL/L (135-148)
[2016-10-14 06:02] LABS: BASOPHILS 0.1 %; BASOPHILS ABSOLUTE 0.01 10/3/uL (0.0-0.16); EOSINOPHILS 1.1 %; EOSINOPHILS ABSOLUTE 0.15 10/3/uL (0.0-0.53); HEMATOCRIT 29.1 % (36.0-48.0); IMMATURE GRANULOCYTES 0.6 %; IMMATURE GRANULOCYTES ABSOLUTE 0.08 10/3/uL (0.0-0.11); LYMPHOCYTES 11.5 %; LYMPHOCYTES ABSOLUTE 1.55 10/3/uL (0.67-4.30); MEAN CORPUS HGB CONC 30.9 g/dL (32.0-36.0); MEAN CORPUSCULAR HEMOGLOB 28.8 pg (26.0-34.0); MEAN PLATELET VOLUME 9.1 fL (9.2-13.0); MONOCYTES 10.9 %; MONOCYTES ABSOLUTE 1.47 10/3/uL (0.21-1.20); NEUTROPHILS 75.8 %; NEUTROPHILS ABSOLUTE 10.25 10/3/uL (2.02-8.40); PLATELET COUNT 276 10/3/uL (150-400); RBC DISTRIBUTION WIDTH 17.2 % (12.0-16.0); RED CELL COUNT 3.13 10/6/uL (4.0-5.6); WHITE BLOOD CELLS 13.5 10/3/uL (4.5-10.5)
[2016-10-14 06:03] LABS: MANUAL DIFF NO %
[2016-10-14 06:17] LABS: ALBUMIN 1.7 G/DL (3.5-5.0); BUN (BLOOD UREA NITROGEN) 9 MG/DL (6-23); CALCIUM, SERUM 7.8 MG/DL (8.5-10.4); CHLORIDE, SERUM 97 MMOL/L (96-112); CO2 (CARBON DIOXIDE) 36 MMOL/L (24-34); CREATININE 0.48 MG/DL (0.55-1.02); GFR AFRICAN AMERICAN 107 ML/MIN (>=60); GFR NON AFRICAN AMERICAN 92 ML/MIN (>=60); GLUCOSE, SERUM 86 MG/DL (60-99); PHOSPHORUS, SERUM 2.8 MG/DL (2.5-4.5); POTASSIUM, SERUM 3.8 MMOL/L (3.5-5.3); SODIUM, SERUM 139 MMOL/L (135-148)
[2016-10-15 06:27] LABS: BASOPHILS 0.1 %; BASOPHILS ABSOLUTE 0.02 10/3/uL (0.0-0.16); EOSINOPHILS 1.3 %; EOSINOPHILS ABSOLUTE 0.18 10/3/uL (0.0-0.53); HEMATOCRIT 30.5 % (36.0-48.0); HEMOGLOBIN 9.3 g/dL (12.0-16.0); IMMATURE GRANULOCYTES 0.6 %; IMMATURE GRANULOCYTES ABSOLUTE 0.08 10/3/uL (0.0-0.11); LYMPHOCYTES 11.8 %; LYMPHOCYTES ABSOLUTE 1.69 10/3/uL (0.67-4.30); MANUAL DIFF NO %; MEAN CORPUS HGB CONC 30.5 g/dL (32.0-36.0); MEAN CORPUSCULAR HEMOGLOB 28.2 pg (26.0-34.0); MEAN CORPUSCULAR VOLUME 92.4 fL (80-100); MONOCYTES 10.7 %; MONOCYTES ABSOLUTE 1.53 10/3/uL (0.21-1.20); NEUTROPHILS 75.5 %; NEUTROPHILS ABSOLUTE 10.84 10/3/uL (2.02-8.40); PLATELET COUNT 309 10/3/uL (150-400); RBC DISTRIBUTION WIDTH 17.1 % (12.0-16.0); WHITE BLOOD CELLS 14.3 10/3/uL (4.5-10.5)
[2016-10-15 06:50] LABS: BUN (BLOOD UREA NITROGEN) 9 MG/DL (6-23); CALCIUM, SERUM 8.4 MG/DL (8.5-10.4); CHLORIDE, SERUM 94 MMOL/L (96-112); CO2 (CARBON DIOXIDE) 38 MMOL/L (24-34); CREATININE 0.41 MG/DL (0.55-1.02); GFR AFRICAN AMERICAN 112 ML/MIN (>=60); GFR NON AFRICAN AMERICAN 97 ML/MIN (>=60); GLUCOSE, SERUM 89 MG/DL (60-99); POTASSIUM, SERUM 3.4 MMOL/L (3.5-5.3); SODIUM, SERUM 139 MMOL/L (135-148)
[2016-10-16 05:47] LABS: BASOPHILS 0.1 %; BASOPHILS ABSOLUTE 0.01 10/3/uL (0.0-0.16); EOSINOPHILS 0.9 %; EOSINOPHILS ABSOLUTE 0.12 10/3/uL (0.0-0.53); HEMATOCRIT 29.5 % (36.0-48.0); HEMOGLOBIN 9.1 g/dL (12.0-16.0); IMMATURE GRANULOCYTES 0.5 %; IMMATURE GRANULOCYTES ABSOLUTE 0.07 10/3/uL (0.0-0.11); LYMPHOCYTES 10.4 %; LYMPHOCYTES ABSOLUTE 1.34 10/3/uL (0.67-4.30); MEAN CORPUS HGB CONC 30.8 g/dL (32.0-36.0); MEAN CORPUSCULAR HEMOGLOB 28.5 pg (26.0-34.0); MEAN CORPUSCULAR VOLUME 92.5 fL (80-100); MEAN PLATELET VOLUME 9.3 fL (9.2-13.0); MONOCYTES 9.7 %; MONOCYTES ABSOLUTE 1.25 10/3/uL (0.21-1.20); NEUTROPHILS 78.4 %; NEUTROPHILS ABSOLUTE 10.07 10/3/uL (2.02-8.40); PLATELET COUNT 269 10/3/uL (150-400); RED CELL COUNT 3.19 10/6/uL (4.0-5.6); WHITE BLOOD CELLS 12.9 10/3/uL (4.5-10.5)
[2016-10-16 05:48] LABS: MANUAL DIFF NO %
[2016-10-16 05:55] LABS: BUN (BLOOD UREA NITROGEN) 9 MG/DL (6-23); CALCIUM, SERUM 8.3 MG/DL (8.5-10.4); CHLORIDE, SERUM 95 MMOL/L (96-112); CO2 (CARBON DIOXIDE) 38 MMOL/L (24-34); CREATININE 0.42 MG/DL (0.55-1.02); GFR AFRICAN AMERICAN 111 ML/MIN (>=60); GFR NON AFRICAN AMERICAN 96 ML/MIN (>=60); GLUCOSE, SERUM 90 MG/DL (60-99); SODIUM, SERUM 138 MMOL/L (135-148)
[2016-10-17 06:20] LABS: BASOPHILS 0.1 %; BASOPHILS ABSOLUTE 0.02 10/3/uL (0.0-0.16); EOSINOPHILS 0.6 %; HEMOGLOBIN 9.5 g/dL (12.0-16.0); IMMATURE GRANULOCYTES 0.5 %; IMMATURE GRANULOCYTES ABSOLUTE 0.07 10/3/uL (0.0-0.11); LYMPHOCYTES 7.5 %; LYMPHOCYTES ABSOLUTE 1.17 10/3/uL (0.67-4.30); MANUAL DIFF NO %; MEAN CORPUS HGB CONC 30.6 g/dL (32.0-36.0); MEAN CORPUSCULAR HEMOGLOB 28.6 pg (26.0-34.0); MEAN CORPUSCULAR VOLUME 93.4 fL (80-100); MEAN PLATELET VOLUME 9.2 fL (9.2-13.0); MONOCYTES 10.4 %; MONOCYTES ABSOLUTE 1.61 10/3/uL (0.21-1.20); NEUTROPHILS 80.9 %; NEUTROPHILS ABSOLUTE 12.58 10/3/uL (2.02-8.40); PLATELET COUNT 285 10/3/uL (150-400); RBC DISTRIBUTION WIDTH 17.1 % (12.0-16.0); RED CELL COUNT 3.32 10/6/uL (4.0-5.6); WHITE BLOOD CELLS 15.6 10/3/uL (4.5-10.5)
[2016-10-17 06:35] LABS: BUN (BLOOD UREA NITROGEN) 13 MG/DL (6-23); CALCIUM, SERUM 8.4 MG/DL (8.5-10.4); CHLORIDE, SERUM 95 MMOL/L (96-112); CO2 (CARBON DIOXIDE) 37 MMOL/L (24-34); CREATININE 0.47 MG/DL (0.55-1.02); GFR AFRICAN AMERICAN 107 ML/MIN (>=60); GFR NON AFRICAN AMERICAN 93 ML/MIN (>=60); GLUCOSE, SERUM 94 MG/DL (60-99); POTASSIUM, SERUM 4.1 MMOL/L (3.5-5.3); SODIUM, SERUM 138 MMOL/L (135-148)
[2016-10-18 06:37] LABS: BASOPHILS 0.1 %; BASOPHILS ABSOLUTE 0.01 10/3/uL (0.0-0.16); EOSINOPHILS 0.4 %; EOSINOPHILS ABSOLUTE 0.05 10/3/uL (0.0-0.53); HEMATOCRIT 32.4 % (36.0-48.0); HEMOGLOBIN 9.8 g/dL (12.0-16.0); IMMATURE GRANULOCYTES 0.5 %; IMMATURE GRANULOCYTES ABSOLUTE 0.07 10/3/uL (0.0-0.11); LYMPHOCYTES 7.6 %; LYMPHOCYTES ABSOLUTE 1.08 10/3/uL (0.67-4.30); MEAN CORPUS HGB CONC 30.2 g/dL (32.0-36.0); MEAN CORPUSCULAR HEMOGLOB 28.5 pg (26.0-34.0); MEAN CORPUSCULAR VOLUME 94.2 fL (80-100); MEAN PLATELET VOLUME 9.5 fL (9.2-13.0); MONOCYTES 6.8 %; MONOCYTES ABSOLUTE 0.97 10/3/uL (0.21-1.20); NEUTROPHILS 84.6 %; NEUTROPHILS ABSOLUTE 11.99 10/3/uL (2.02-8.40); PLATELET COUNT 297 10/3/uL (150-400); RBC DISTRIBUTION WIDTH 17.2 % (12.0-16.0); RED CELL COUNT 3.44 10/6/uL (4.0-5.6); WHITE BLOOD CELLS 14.2 10/3/uL (4.5-10.5)
[2016-10-18 06:45] LABS: MANUAL DIFF NO %
[2016-10-18 06:54] LABS: BUN (BLOOD UREA NITROGEN) 11 MG/DL (6-23); CALCIUM, SERUM 8.1 MG/DL (8.5-10.4); CHLORIDE, SERUM 99 MMOL/L (96-112); CO2 (CARBON DIOXIDE) 33 MMOL/L (24-34); CREATININE 0.22 MG/DL (0.55-1.02); GFR AFRICAN AMERICAN 138 ML/MIN (>=60); GFR NON AFRICAN AMERICAN 119 ML/MIN (>=60); GLUCOSE, SERUM 92 MG/DL (60-99); SODIUM, SERUM 137 MMOL/L (135-148)
[2016-10-19 06:20] LABS: BASOPHILS 0.2 %; BASOPHILS ABSOLUTE 0.02 10/3/uL (0.0-0.16); EOSINOPHILS ABSOLUTE 0.13 10/3/uL (0.0-0.53); HEMOGLOBIN 9.7 g/dL (12.0-16.0); IMMATURE GRANULOCYTES 0.6 %; IMMATURE GRANULOCYTES ABSOLUTE 0.07 10/3/uL (0.0-0.11); LYMPHOCYTES 12.5 %; LYMPHOCYTES ABSOLUTE 1.58 10/3/uL (0.67-4.30); MEAN CORPUS HGB CONC 30.3 g/dL (32.0-36.0); MEAN CORPUSCULAR HEMOGLOB 28.4 pg (26.0-34.0); MEAN CORPUSCULAR VOLUME 93.6 fL (80-100); MEAN PLATELET VOLUME 9.6 fL (9.2-13.0); MONOCYTES 11.7 %; MONOCYTES ABSOLUTE 1.48 10/3/uL (0.21-1.20); PLATELET COUNT 293 10/3/uL (150-400); RBC DISTRIBUTION WIDTH 16.9 % (12.0-16.0); RED CELL COUNT 3.42 10/6/uL (4.0-5.6); WHITE BLOOD CELLS 12.7 10/3/uL (4.5-10.5)
[2016-10-19 06:21] LABS: MANUAL DIFF NO %
[2016-10-19 06:33] LABS: BUN (BLOOD UREA NITROGEN) 11 MG/DL (6-23); CHLORIDE, SERUM 97 MMOL/L (96-112); CREATININE 0.46 MG/DL (0.55-1.02); GFR AFRICAN AMERICAN 108 ML/MIN (>=60); GFR NON AFRICAN AMERICAN 93 ML/MIN (>=60); GLUCOSE, SERUM 88 MG/DL (60-99); SODIUM, SERUM 139 MMOL/L (135-148)
[2016-10-19 06:34] LABS: CO2 (CARBON DIOXIDE) 38 MMOL/L (24-34)
[2016-10-20 05:08] LABS: BASOPHILS 0.3 %; BASOPHILS ABSOLUTE 0.04 10/3/uL (0.0-0.16); EOSINOPHILS 1.4 %; EOSINOPHILS ABSOLUTE 0.17 10/3/uL (0.0-0.53); HEMOGLOBIN 9.3 g/dL (12.0-16.0); IMMATURE GRANULOCYTES 0.4 %; IMMATURE GRANULOCYTES ABSOLUTE 0.05 10/3/uL (0.0-0.11); LYMPHOCYTES 10.5 %; LYMPHOCYTES ABSOLUTE 1.31 10/3/uL (0.67-4.30); MEAN CORPUSCULAR HEMOGLOB 28.4 pg (26.0-34.0); MEAN CORPUSCULAR VOLUME 94.5 fL (80-100); MEAN PLATELET VOLUME 9.3 fL (9.2-13.0); MONOCYTES ABSOLUTE 1.49 10/3/uL (0.21-1.20); NEUTROPHILS 75.4 %; PLATELET COUNT 260 10/3/uL (150-400); RBC DISTRIBUTION WIDTH 16.7 % (12.0-16.0); RED CELL COUNT 3.28 10/6/uL (4.0-5.6); WHITE BLOOD CELLS 12.5 10/3/uL (4.5-10.5)
[2016-10-20 05:21] LABS: BUN (BLOOD UREA NITROGEN) 10 MG/DL (6-23); CALCIUM, SERUM 8.6 MG/DL (8.5-10.4); CHLORIDE, SERUM 96 MMOL/L (96-112); CO2 (CARBON DIOXIDE) 36 MMOL/L (24-34); CREATININE 0.37 MG/DL (0.55-1.02); GFR AFRICAN AMERICAN 116 ML/MIN (>=60); GFR NON AFRICAN AMERICAN 100 ML/MIN (>=60); GLUCOSE, SERUM 87 MG/DL (60-99); POTASSIUM, SERUM 4.4 MMOL/L (3.5-5.3); SODIUM, SERUM 137 MMOL/L (135-148)
[2016-10-20 05:25] LABS: MANUAL DIFF NO %
[2016-10-22 05:16] LABS: BASOPHILS 0.3 %; BASOPHILS ABSOLUTE 0.04 10/3/uL (0.0-0.16); EOSINOPHILS 1.8 %; EOSINOPHILS ABSOLUTE 0.22 10/3/uL (0.0-0.53); IMMATURE GRANULOCYTES 0.7 %; IMMATURE GRANULOCYTES ABSOLUTE 0.09 10/3/uL (0.0-0.11); LYMPHOCYTES 15.8 %; LYMPHOCYTES ABSOLUTE 1.94 10/3/uL (0.67-4.30); MEAN CORPUS HGB CONC 30.5 g/dL (32.0-36.0); MEAN CORPUSCULAR HEMOGLOB 28.3 pg (26.0-34.0); MEAN CORPUSCULAR VOLUME 92.7 fL (80-100); MEAN PLATELET VOLUME 9.5 fL (9.2-13.0); MONOCYTES 11.9 %; MONOCYTES ABSOLUTE 1.46 10/3/uL (0.21-1.20); NEUTROPHILS 69.5 %; NEUTROPHILS ABSOLUTE 8.55 10/3/uL (2.02-8.40); RBC DISTRIBUTION WIDTH 16.6 % (12.0-16.0); WHITE BLOOD CELLS 12.3 10/3/uL (4.5-10.5)
[2016-10-22 05:19] LABS: HEMATOCRIT 36.7 % (36.0-48.0); HEMOGLOBIN 11.2 g/dL (12.0-16.0); MANUAL DIFF NO %; PLATELET COUNT 379 10/3/uL (150-400); RED CELL COUNT 3.96 10/6/uL (4.0-5.6)
[2016-10-22 05:38] LABS: BUN (BLOOD UREA NITROGEN) 12 MG/DL (6-23); CALCIUM, SERUM 8.5 MG/DL (8.5-10.4); CHLORIDE, SERUM 91 MMOL/L (96-112); CO2 (CARBON DIOXIDE) 39 MMOL/L (24-34); CREATININE 0.41 MG/DL (0.55-1.02); GFR AFRICAN AMERICAN 112 ML/MIN (>=60); GFR NON AFRICAN AMERICAN 97 ML/MIN (>=60); GLUCOSE, SERUM 91 MG/DL (60-99); POTASSIUM, SERUM 3.7 MMOL/L (3.5-5.3); SODIUM, SERUM 137 MMOL/L (135-148)
[2016-10-22 05:39] LABS: DIGOXIN 1.2 NG/ML (0.8-2.0)
== END 2016-10-22 16:39 | DRG 239 ==
LOC: ENRESERV → ENRESERVDT → ENRESERVTM → ER 22:25 → CVICU 10-06 03:02 → 6NO 10-06 03:02 → CVICU 10-08 21:03 → 6NO 10-09 16:45
PROVIDERS: Hospitalist; Internal Medicine; Internal Medicine Pulmonary Disease; Nurse Practitioner Family
PROC: 30233N1 Transfusion of Nonautologous Red Blood Cells into Peripheral Vein, Percutaneous Approach (ICD-10-PCS; principal; 2016-10-06)
PROC: 02HV33Z Insertion of Infusion Device into Superior Vena Cava, Percutaneous Approach (ICD-10-PCS; 2016-10-06)
PROC: 0DJ08ZZ Inspection of Upper Intestinal Tract, Via Natural or Artificial Opening Endoscopic (ICD-10-PCS; 2016-10-07)
PROC: 0DJ08ZZ Inspection of Upper Intestinal Tract, Via Natural or Artificial Opening Endoscopic (ICD-10-PCS; 2016-10-07)
PROC: 0Y6G0ZZ Detachment at Left Knee Region, Open Approach (ICD-10-PCS; 2016-10-17)
DX: I70.262 Atherosclerosis of native arteries of extremities with gangrene, left leg (principal); E43 Unspecified severe protein-calorie malnutrition; I50.23 Acute on chronic systolic (congestive) heart failure; D68.32 Hemorrhagic disorder due to extrinsic circulating anticoagulants; I48.2 Chronic atrial fibrillation; D62 Acute posthemorrhagic anemia; E87.1 Hypo-osmolality and hyponatremia; I95.2 Hypotension due to drugs; L03.116 Cellulitis of left lower limb; K92.1 Melena; I11.0 Hypertensive heart disease with heart failure; I08.3 Combined rheumatic disorders of mitral, aortic and tricuspid valves; B95.62 Methicillin resistant Staphylococcus aureus infection as the cause of diseases classified elsewhere; M19.90 Unspecified osteoarthritis, unspecified site; M81.0 Age-related osteoporosis without current pathological fracture; T45.515A Adverse effect of anticoagulants, initial encounter; Z79.01 Long term (current) use of anticoagulants; Z79.899 Other long term (current) drug therapy; Z79.52 Long term (current) use of systemic steroids; Z90.49 Acquired absence of other specified parts of digestive tract; Z89.511 Acquired absence of right leg below knee; Z87.891 Personal history of nicotine dependence; R40.0 Somnolence; T40.2X5A Adverse effect of other opioids, initial encounter
CPT/HCPCS: 36415; 36569; 71010; 73630-LT; 74176; 80048; 80053; 80069; 80162; 80202; 81001; 82009; 82270; 82272; 83036; 83605; 83690; 83735; 83880; 84100; 84132; 84145; 85014; 85018; 85025; 85610; 85730; 86140; 86850; 86900; 86901; 86920; 87040; 87070; 87077; 87086; 87186; 87205; 87641; 88307; 88311; 93005; 93306; 94640; 96374; 97110-GP; 97161-GP; 97164-GP; 97166-GO; 97530-GP; 99285; A9270-GY; C1751; C9113; G8978-CM-GP; G8979-CK-GP; G8979-CL-GP; G8987-CK-GO; G8988-CJ-GO; J0282; J1160; J1170; J1720; J1940; J2370; J2405; J2543; J3010; J3370; J3475; P9016